=== PATIENT | female | born 1985 | race African-American/Black ===

== ENCOUNTER 2020-01-21 00:45 | Emergency (ER) | payer SELFPAY ==
[~2020-01-21] VITALS: Ht 157.5 cm; Wt 60.0 kg
[2020-01-21] MEDS ORDERED: MORPHINE SULFATE 4 MG/ML CPJ (NOT FOR IM USE) IV STA (01:21)
[2020-01-21] MEDS ORDERED: ONDANSETRON HCL 4MG/2ML INJ IV STA (01:21)
[2020-01-21] MEDS ORDERED: SODIUM CHLORIDE 0.9% 1,000 ML IV ONE (01:21)
[2020-01-21 01:46] LABS: BASOPHILS % 0.9 % (0.0-2.0); EOSINOPHILS % 1.3 % (0.0-5.0); HEMATOCRIT. 38.7 % (36.0-48.0); HEMOGLOBIN. 13.5 g/dL (12.0-16.0); LYMPHOCYTES % 44.2 % (20.0-50.0); MEAN CORPUSCULAR HEMOGLOBIN 26.6 pg (28.0-32.0); MEAN CORPUSCULAR VOLUME 76.2 fL (81.0-99.0); MEAN PLATELET VOLUME 8.8 fl (7.4-10.4); MONOCYTES % 6.3 % (2.0-8.0); NEUTROPHILS % 47.3 % (40.0-76.0); PLATELET 327 x1000/uL (130-400); RED BLOOD CELL COUNT 5.08 mill/uL (4.2-5.4); RED CELL DISTRIBUTION WIDTH 15.4 % (11.6-14.6)
[2020-01-21 01:48] LABS: CHLORIDE 108 mEq/L (98-107)
[2020-01-21 01:50] LABS: HCG SCREEN NEGATIVE
[2020-01-21 02:15] LABS: CLARITY URINE CLEAR (CLEAR); COLOR URINE YELLOW (YELLOW); KETONES URINE TRACE (NEGATIVE); LEUKOCYTE ESTERASE URINE NEGATIVE (NEGATIVE); NITRITE URINE NEGATIVE (NEGATIVE); OCCULT BLOOD URINE NEGATIVE (NEGATIVE); PH URINE 5.5 (4.5-8.0); PROTEIN URINE NEGATIVE (NEGATIVE)
[2020-01-21] MEDS ORDERED: MAGNESIUM/ALUMINUM HYDROXIDE/SIMETHICONE 30ML UDC PO ONE (03:45)
[2020-01-21] MEDS ORDERED: FAMOTIDINE 20MG TABLET PO ONE (04:00)
[2020-01-21 04:25] VITALS: BP 107/65
== END 2020-01-21 04:33 | disposition home or self-care (01) ==
LOC: ER 00:45
DX: M54.5 Low back pain (principal); R10.13 Epigastric pain
CPT/HCPCS: 36415; 71045; 74176; 76700; 80053; 81003; 81025; 83690; 84703; 85025; 93005; 96374; 96375; 99285; J2270; J2405; J7030